=== PATIENT | male | born 1945 | race Caucasian/White ===

== ENCOUNTER → 2017-03-04 | Outpatient (CLI) | payer MEDICARE, OTHER ==
--- NOTE | 2017-03-04 14:56 | CT ---
EXAMINATION TYPE: CT chest wo con DATE OF EXAM: 03/04/2017 12:58 PM COMPARISON: 12/20/2014 HISTORY: 71-year-old male poor historian. Follow up for pulmonary nodule. TECHNIQUE: Contiguous axial scanning of the chest without IV contrast. Coronal and sagittal reconstru ctions performed. CT DLP: 229.3 mGycm Automated exposure control for dose reduction was used. FINDINGS: The heart is normal size without pericardial effusion. Coronary vessel calcifications are present and are a marker for coronary artery disease. Aorta is normal caliber with conventional arch vessel branching anatomy and mild atherosclerotic arch calcifications. No thoracic lymphadenopathy by CT size criteria. Incidental mild bilateral gynecomastia. Evaluation of the lungs shows mild diffuse bronchial wall thickening similar to prior exam. There is very mild scattered emphysematous cysts demonstrated strandy atelectasis in the inferior lingula and add both lower lobes. Small to moderate-sized hiatal hernia. Visualized upper abdomen shows no gross abnormality. Bones: Bridging anterior endplate spondylosis throughout the thoracic spine suggestive of DISH. No os seous destructive process. IMPRESSION: 1. COPD WITH VERY MILD SCATTERED EMPHYSEMA. 2. NO SUSPICIOUS PULMONARY NODULE IDENTIFIED. IF THERE IS AN OUTSIDE EXAM IN WHICH A PULMONARY NODULE WAS VISUALIZED, CORRELATION CAN BE MADE AND THIS EXAM CAN BE REVIEWED. 3. SMALL TO MODERATE-SIZED HIATAL HERNIA.
== END | disposition home or self-care (01) ==
LOC: RADCTMAIN 12:24
PROVIDERS: ATTEND Internal Medicine Sleep Medicine
DX: J43.9 Emphysema, unspecified (principal)
CPT/HCPCS: 71250

== ENCOUNTER → 2017-08-18 | Outpatient (CLI) | payer MEDICARE, OTHER ==
--- NOTE | 2017-08-18 11:32 | MR ---
EXAMINATION TYPE: MR brain wo con DATE OF EXAM: 08/18/2017 COMPARISON: 01/25/2015 CT brain HISTORY: Stroke, seizures T1-weighted sagittal, T2, FLAIR, and diffusion axial, and T2 coronal coronal views of the brain are s ubmitted. There is no evidence of acute ischemia. There is no mass effect. Craniocervical junction maintained. Sella turcica has a normal appearance. No cerebellopontine angle mass. There is mild to moderate generalized degenerative change. There are scattered areas of abnormal sign al the white matter which are nonspecific but most typical remote microvascular ischemia. Changes of chronic sinusitis noted. Craniocervical junction maintained. IMPRESSION: 1. No acute intracranial process 2. Degenerative and nonspecific white matter changes most typical of remote microvascular ischemia.
== END | disposition home or self-care (01) ==
LOC: RADMRIMAIN 09:26
PROVIDERS: ATTEND Nurse Practitioner Acute Care
DX: R90.82 White matter disease, unspecified (principal); G40.909 Epilepsy, unspecified, not intractable, without status epilepticus
CPT/HCPCS: 70551

== ENCOUNTER 2017-10-20 11:31 | Emergency (ER) | payer MEDICARE, OTHER ==
[2017-10-20] MEDS ORDERED: SODIUM CHLORIDE 0.9% 500 ML IV STA (12:41)
[2017-10-20] MEDS ORDERED: KETOROLAC 30 MG/ML 1 ML VIAL IVP STA (12:42)
--- NOTE | 2017-10-20 12:57 | ED ---
General Adult HPI - General Chief complaint: Back Pain/Injury Stated complaint: SIDE PAIN, DIFFICULTY URINIATING Time Seen by Provider: 10/20/17 12:20 Source: patient, RN notes reviewed Mode of arrival: ambulatory Limitations: no limitations - History of Present Illness Initial comments: This a 72-year-old male presents emergency Department with chief complaint of back pain and difficulty urinating. Patient states his chronic back issues in which he sees Dr. Jeong for. Patient states that he receives Elberon along with some injections at times. Patient states that pain, which worsened usual today states that he felt that he was not under control slightly came in. Patient also states that over days ago he had to push to urinate and felt like something was stuck states that he said no, urinating at this time. Denies nausea, vomiting diarrhea constipation. Denies any dysuria or hematuria. Patient had no prostate issues denies any other complaints. - Related Data Home Medications Medication Instructions Recorded Confirmed HYDROcodone/APAP 5-325MG [[place] 5] 1 tab PO BID 01/25/15 10/20/17 Omeprazole [PriLOSEC] 20 mg PO AC-BRKFST 01/25/15 10/20/17 levETIRAcetam [Keppra] 1,000 mg PO Q12HR 01/25/15 10/20/17 Carbidopa/Levodopa 1 tab PO BID 10/20/17 10/20/17 [Carbidopa-Levodopa 10-100 Tab] Memantine HCl/Donepezil HCl 1 cap PO DAILY 10/20/17 10/20/17 [Namzaric 28 mg-10 mg Capsule] Naproxen 500 mg PO BID 10/20/17 10/20/17 QUEtiapine [SEROquel] 100 mg PO HS 10/20/17 10/20/17 Previous Rx's Medication Instructions Recorded methylPREDNISolone [Medrol Dose 4 mg PO DIRECTED #1 pack 10/20/17 Pack] Allergies Allergy/AdvReac Type Severity Reaction Status Date / Time No Known Allergies Allergy Verified 10/20/17 11:57 Review of Systems ROS Statement: Those systems with pertinent positive or pertinent negative responses have been documented in the HPI. ROS Other: All systems not noted in ROS Statement are negative. Past Medical History Past Medical History: COPD, Dementia, Eye Disorder, GERD/Reflux, Memory Impairment, Neurologic Disorder, Pulmonary Embolus (PE), Seizure Disorder Additional Past Medical History / Comment(s): parkinsons, dysphagia, hiatel hernia History of Any Multi-Drug Resistant Organisms: MRSA Date of last positivie culture/infection: 2014 MDRO Source:: lungs/pneumonia. Additional Past Surgical History / Comment(s): LT CATARACT, COLONOSCOPY;EGD Past Anesthesia/Blood Transfusion Reactions: No Reported Reaction Past Psychological History: Anxiety Smoking Status: Former smoker Past Alcohol Use History: None Reported Past Drug Use History: None Reported - Past Family History Father Family Medical History: CVA/TIA, Myocardial Infarction ([place]), Seizure Disorder Mother Family Medical History: CVA/TIA General Exam Limitations: no limitations General appearance: alert, in no apparent distress Head exam: Present: atraumatic, normocephalic, normal inspection Respiratory exam: Present: normal lung sounds bilaterally. Absent: respiratory distress, wheezes, rales, rhonchi, stridor Cardiovascular Exam: Present: regular rate, normal rhythm, normal heart sounds. Absent: systolic murmur, diastolic murmur, rubs, gallop, clicks GI/Abdominal exam: Present: soft, normal bowel sounds. Absent: distended, tenderness, guarding, rebound, rigid Extremities exam: Present: normal inspection, full ROM, normal capillary refill. Absent: tenderness, pedal edema, joint swelling, calf tenderness Back exam: Present: full ROM, tenderness, paraspinal tenderness. Absent: CVA tenderness (R), CVA tenderness (L), vertebral tenderness Neurological exam: Present: alert, oriented X3, CN II-XII intact, reflexes normal. Absent: motor sensory deficit Skin exam: Present: warm, dry, intact, normal color. Absent: rash Course Vital Signs 10/20/17 10/20/17 10/20/17 11:38 11:43 14:47 Temperature 99 F Pulse Rate 77 84 Respiratory 16 18 Rate Blood Pressure 152/68 163/78 O2 Sat by Pulse 97 94 L Oximetry Medical Decision Making - Medical Decision Making 72-year-old male present emergency Department chief complaint of chronic back pain. Patient's lab work and imaging is unremarkable. Patient states he didn' t episode where he cannot urinate. Patient has no evidence of infection. Patient will be discharged. Advised follow-up with pain management in his neurologist. - Lab Data Result diagrams: 10/20/17 13:00 10/20/17 13:00 Lab Results 10/20/17 10/20/17 10/20/17 Range/Units 13:00 13:00 13:10 WBC 6.5 (3.8-10.6) k/uL RBC 5.09 (4.30-5.90) m/uL Hgb 15.7 (13.0-17.5) gm/dL Hct 48.6 (39.0-53.0) % MCV 95.5 (80.0-100.0) fL MCH 30.9 (25.0-35.0) pg MCHC 32.3 (31.0-37.0) g/dL RDW 14.4 (11.5-15.5) % Plt Count 184 (150-450) k/uL Neutrophils % 81 % Lymphocytes % 9 % Monocytes % 6 % Eosinophils % 2 % Basophils % 1 % Neutrophils # 5.3 (1.3-7.7) k/uL Lymphocytes # 0.6 L (1.0-4.8) k/uL Monocytes # 0.4 (0-1.0) k/uL Eosinophils # 0.2 (0-0.7) k/uL Basophils # 0.0 (0-0.2) k/uL Sodium 145 (137-145) mmol/L Potassium 4.5 (3.5-5.1) mmol/L Chloride 103 (98-107) mmol/L Carbon Dioxide 29 (22-30) mmol/L Anion Gap 13 mmol/L BUN 14 (9-20) mg/dL Creatinine 0.90 (0.66-1.25) mg/dL Est GFR (MDRD) Af Amer >60 (>60 ml/min/1.73 sqM) Est GFR (MDRD) Non-Af >60 (>60 ml/min/1.73 sqM) Glucose 92 (74-99) mg/dL Calcium 9.8 (8.4-10.2) mg/dL Total Bilirubin 1.1 (0.2-1.3) mg/dL AST 21 (17-59) U/L ALT 26 (21-72) U/L Alkaline Phosphatase 101 (38-126) U/L Total Protein 7.2 (6.3-8.2) g/dL Albumin 4.5 (3.5-5.0) g/dL Amylase 51 (30-110) U/L Lipase 38 (23-300) U/L Urine Color Yellow Urine Appearance Clear (Clear) Urine pH 6.0 (5.0-8.0) Ur Specific [place] 1.015 (1.001-1.035) Urine Protein 1+ H (Negative) Urine Glucose (UA) Negative (Negative) Urine Ketones Negative (Negative) Urine Blood Negative (Negative) Urine Nitrite Negative (Negative) Urine Bilirubin Negative (Negative) Urine Urobilinogen <2.0 (<2.0) mg/dL Ur Leukocyte Esterase Negative (Negative) Urine RBC 1 (0-5) /hpf Urine WBC <1 (0-5) /hpf Urine Bacteria Rare H (None) /hpf Urine Mucus Rare H (None) /hpf Disposition Clinical Impression: Back pain Disposition: HOME SELF-CARE Condition: Stable Instructions: Chronic Back Pain (ED) Additional Instructions: Please return to the Emergency Department if symptoms worsen or any other concerns. Prescriptions: methylPREDNISolone [Medrol Dose Pack] 4 mg PO DIRECTED #1 pack Referrals: Jan Chand MD [Primary Care Provider] - 1-2 days Time of Disposition: 14:56
[2017-10-20 13:17] LABS: Basophils % (A) 1 %; CH 31.1; CHCM 32.7; Eosinophils # (A) 0.2 k/uL (0-0.7); Eosinophils % (A) 2 %; HCT 48.6 % (39.0-53.0); HDW 2.48; HGB 15.7 gm/dL (13.0-17.5); Luc # (Auto) 0.04; Luc % (Auto) 1; Lymphocytes # (A) 0.6 k/uL (1.0-4.8); Lymphocytes % (A) 9 %; MCH 30.9 pg (25.0-35.0); MCHC 32.3 g/dL (31.0-37.0); MCV 95.5 fL (80.0-100.0); Mean Platelet Volume 7.2; Monocytes # (A) 0.4 k/uL (0-1.0); Monocytes % (A) 6 %; Neutrophils # (A) 5.3 k/uL (1.3-7.7); Neutrophils % (A) 81 %; RBC 5.09 m/uL (4.30-5.90); RDW 14.4 % (11.5-15.5); WBC 6.5 k/uL (3.8-10.6); WBC (Perox) 6.42
--- NOTE | 2017-10-20 13:26 | XR ---
EXAMINATION TYPE: XR KUB DATE OF EXAM: 10/20/2017 1:17 PM CLINICAL HISTORY: Flank pain and difficulty urinating. TECHNIQUE: Two Upright KUB images of the abdomen are obtained. COMPARISON: CT abdomen and pelvis July 16, 2013 FINDINGS: Scattered gas is seen in non-distended stomach and small bowel loops. Gas and fecal materia l is seen in non-distended colon. There is no visceromegaly, pneumoperitoneum, or abnormal calcificat ion appreciated. The lung bases are clear. Multilevel spurring and spine is redemonstrated. IMPRESSION: Overall nonobstructive bowel gas pattern. No definite nephrolithiasis.
[2017-10-20 13:29] LABS: Appearance,Urine Clear (Clear); Bacteria,Urine Rare /hpf; Bilirubin,Urine Negative (Negative); Glucose,Urine (UA) Negative (Negative); Ketones,Urine Negative (Negative); Leukocyte Esterase,Urine Negative (Negative); Mucus,Urine Rare /hpf; Nitrite,Urine Negative (Negative); Particle Count 1388; Protein,Urine 1+ (Negative); RBC,Urine 1 /hpf (0-5); Specific Gravity,Urine 1.015 (1.001-1.035); UA Billing (MACRO vs. MICRO) MICRO; Urobilinogen,Urine <2.0 mg/dL (<2.0); WBC,Urine <1 /hpf (0-5)
[2017-10-20 13:30] LABS: ALT 26 U/L (21-72); AST 21 U/L (17-59); Alkaline Phosphatase 101 U/L (38-126); Amylase 51 U/L (30-110); Anion Gap 13 mmol/L; Blood Urea Nitrogen 14 mg/dL (9-20); Calcium 9.8 mg/dL (8.4-10.2); Carbon Dioxide 29 mmol/L (22-30); Chloride 103 mmol/L (98-107); Glucose 92 mg/dL (74-99); Non-African American GFR(MDRD) >60 (>60 ml/min/1.73 sqM); Potassium 4.5 mmol/L (3.5-5.1); Sodium 145 mmol/L (137-145); Total Bilirubin 1.1 mg/dL (0.2-1.3); Total Protein 7.2 g/dL (6.3-8.2)
[2017-10-20] MEDS ORDERED: ORPHENADRINE 30 MG/ML 2 ML VIAL IVP STA (13:58)
[2017-10-20] MEDS ORDERED: HYDROcodone/APAP 7.5-325MG 1 EACH TAB PO ONE (13:58)
--- NOTE | 2017-10-20 14:44 | CT ---
EXAMINATION TYPE: CT brain cspine wo con DATE OF EXAM: 10/20/2017 COMPARISON: CT brain January 25, 2015. MRI brain August 18, 2017 HISTORY: Headache with neck pain CT DLP: 1359.1 mGycm. Automated Exposure Control for Dose Reduction was Utilized. TECHNIQUE: CT scan of the head and cervical spine are performed without contrast. FINDINGS: There is no acute intracranial hemorrhage hemorrhage or midline shift identified. There i s ventricular and sulcal prominence consistent with age-related cerebral atrophy. There is low-attenu ation in the periventricular white matter consistent with product of chronic small vessel ischemic ch ac. High dense material right parietal subcutaneous tissue near axial image 30 is some uncertain et iology unchanged from prior CT suggested is almost certainly benign. Would consider small scalp hemat lashay in appropriate clinical setting though this is less likely given prior comparison with same findi ng. There is old fracture deformity medial wall left orbit redemonstrated. Visualized paranasal sinus es are clear. Cervical spine is visualized in its entirety from C1 through upper thoracic levels and demonstrates s atisfactory alignment without evidence of acute fracture or dislocation. Prevertebral soft tissue ap pears within normal limits. The C1-C2 articulation is within normal limits on the coronal images. Th ere is narrowing of the atlantodental interval with sclerosis. Vertebral body heights and disc space heights are fairly well-maintained. There is large anterior spu rring with some bridging osteophytes anteriorly C4-C6 vertebra. No large posterior disc herniations a re seen on sagittal images. Review of axial images show the neural foramina appear grossly patent at all cervical levels. Spinal canal is grossly preserved. Thyroid gland is within normal limits. Visualized lung apices are grossly clear IMPRESSION: 1. There is no acute fracture or dislocation evident in the cervical spine. 2. No acute intracranial hemorrhage or midline shift is seen. Mild to moderate diffuse cerebral atrop hy and chronic small vessel ischemic change is redemonstrated.
[2017-10-20 15:02] VITALS: BP 161/69; PULSE 59; RESP 17; TEMP 97
== END 2017-10-20 15:27 | disposition home or self-care (01) ==
LOC: EC 11:31
DX: M54.9 Dorsalgia, unspecified (principal); F03.90 Unspecified dementia, unspecified severity, without behavioral disturbance, psychotic disturbance, mood disturbance, and anxiety; K21.9 Gastro-esophageal reflux disease without esophagitis; G40.909 Epilepsy, unspecified, not intractable, without status epilepticus; F41.9 Anxiety disorder, unspecified; G20 Parkinson's disease; Z86.711 Personal history of pulmonary embolism; Z87.891 Personal history of nicotine dependence; Z79.1 Long term (current) use of non-steroidal anti-inflammatories (NSAID); Z79.899 Other long term (current) drug therapy
CPT/HCPCS: 36415; 80053; 82150; 83690; 85025; 81001; 87086; 74000; 72125; 70450; 99284; 96374; 96375; 96361; J2360; J1885

== ENCOUNTER 2018-01-28 11:17 | Inpatient (IN) | payer MEDICARE, MEDICAID ==
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
[2018-01-28 13:40] LABS: Basophils % (A) 0 %; Eosinophils # (A) 0.2 k/uL (0-0.7); Eosinophils % (A) 2 %; HCT 45.5 % (39.0-53.0); Lymphocytes # (A) 0.9 k/uL (1.0-4.8); Lymphocytes % (A) 13 %; MCH 31.3 pg (25.0-35.0); MCHC 35.1 g/dL (31.0-37.0); MCV 89.4 fL (80.0-100.0); Mean Platelet Volume 6.7; Monocytes # (A) 0.4 k/uL (0-1.0); Monocytes % (A) 6 %; Neutrophils # (A) 5.1 k/uL (1.3-7.7); Neutrophils % (A) 77 %; Platelet Count 198 k/uL (150-450); RBC 5.09 m/uL (4.30-5.90); RDW 12.7 % (11.5-15.5); WBC 6.6 k/uL (3.8-10.6)
[2018-01-28 13:51] LABS: ALT 31 U/L (21-72); AST 21 U/L (17-59); Albumin 4.7 g/dL (3.5-5.0); Alkaline Phosphatase 118 U/L (38-126); Anion Gap 14 mmol/L; Blood Urea Nitrogen 15 mg/dL (9-20); Calcium 9.6 mg/dL (8.4-10.2); Carbon Dioxide 26 mmol/L (22-30); Chloride 105 mmol/L (98-107); Glucose 95 mg/dL (74-99); Sodium 145 mmol/L (137-145); Total Bilirubin 1.4 mg/dL (0.2-1.3); Total Protein 7.5 g/dL (6.3-8.2)
[2018-01-28 14:10] LABS: Amphetamine Screen,Urine Not Detected (NotDetected); Barbiturate Screen,Urine Not Detected (NotDetected); Benzodiazepines Screen,Urine Not Detected (NotDetected); Cocaine Screen,Urine Not Detected (NotDetected); Methadone Screen, Urine Not Detected (NotDetected); Opiate Screen,Urine Not Detected (NotDetected); Oxycodone Screen, Urine Not Detected (NotDetected); Phencyclidine Screen,Urine Not Detected (NotDetected); Tricyclic Antidepressant,Urine Detected (NotDetected); Urn Cannabinoid Scrn Not Detected (NotDetected)
[2018-01-28] MEDS ORDERED: MAG HYDROX/AL HYDROX/SIMETH 30 ML CUP PO PRN (16:39)
[2018-01-28] MEDS ORDERED: MAGNESIUM HYDROXIDE 2,400 MG/10 ML CUP PO PRN (16:39)
[2018-01-28 17:09] LABS: Appearance,Urine Clear (Clear); Bilirubin,Urine Negative (Negative); Blood,Urine Negative (Negative); Color,Urine Yellow; Glucose,Urine (UA) 1+ (Negative); Ketones,Urine 1+ (Negative); Leukocyte Esterase,Urine Negative (Negative); Mucus,Urine Moderate /hpf; Nitrite,Urine Negative (Negative); PH, Urine 6.5 (5.0-8.0); Protein,Urine 1+ (Negative); RBC,Urine 14 /hpf (0-5); Specific Gravity,Urine 1.025 (1.001-1.035); Sperm,Urine Many /hpf; Squamous Epithelial Cell,Urine <1 /hpf (0-4); WBC,Urine 3 /hpf (0-5)
[2018-01-28] MEDS ORDERED: NAPROXEN 250 MG TAB PO PRN (20:32)
[2018-01-28] MEDS ORDERED: QUEtiapine 200 MG TAB PO SCH (21:00)
[2018-01-28] MEDS: CARBIDOPA-LEVODOPA 10-100 MG 1 EACH TAB PO SCH (21:28)
[2018-01-28] MEDS: LATANOPROST 0.005% OPHTH DROPS 2.5 ML BTL BOTH EYES SCH (21:28)
[2018-01-28] MEDS: levETIRAcetam 500 MG TAB PO SCH (21:28)
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
[2018-01-29] MEDS: CARBIDOPA-LEVODOPA 10-100 MG 1 EACH TAB PO SCH ×2 (09:59→22:18)
[2018-01-29] MEDS: PANTOPRAZOLE 40 MG TABLET PO SCH (09:59)
[2018-01-29] MEDS: levETIRAcetam 500 MG TAB PO SCH ×2 (10:00→22:18)
[2018-01-29] MEDS: Memantine Hcl/Donepezil Hcl [Namzaric 28 Mg-10 Mg Capsule] PO SCH (10:01)
--- NOTE | 2018-01-29 11:09 | P.HP ---
Psychiatric H&P - . History & Physical: Allergies Allergy/AdvReac Type Severity Reaction Status Date / Time No Known Allergies Allergy Verified 01/28/18 11:53 Vital Signs Temp 97.9 F 01/29/18 06:23 Pulse 77 01/29/18 06:23 Resp 16 01/29/18 06:23 BP 110/58 01/29/18 06:23 Pulse Ox 97 01/28/18 18:15 Intake & Output 01/28/18 01/29/18 01/29/18 18:59 06:59 18:59 Weight 79.379 kg Laboratory Last Values WBC 6.6 k/uL (3.8-10.6) 01/28/18 13:20 RBC 5.09 m/uL (4.30-5.90) 01/28/18 13:20 Hgb 16.0 gm/dL (13.0-17.5) 01/28/18 13:20 Hct 45.5 % (39.0-53.0) 01/28/18 13:20 MCV 89.4 fL (80.0-100.0) 01/28/18 13:20 MCH 31.3 pg (25.0-35.0) 01/28/18 13:20 MCHC 35.1 g/dL (31.0-37.0) 01/28/18 13:20 RDW 12.7 % (11.5-15.5) 01/28/18 13:20 Plt Count 198 k/uL (150-450) 01/28/18 13:20 Neutrophils % 77 % 01/28/18 13:20 Lymphocytes % 13 % 01/28/18 13:20 Monocytes % 6 % 01/28/18 13:20 Eosinophils % 2 % 01/28/18 13:20 Basophils % 0 % 01/28/18 13:20 Neutrophils # 5.1 k/uL (1.3-7.7) 01/28/18 13:20 Lymphocytes # 0.9 k/uL (1.0-4.8) L 01/28/18 13:20 Monocytes # 0.4 k/uL (0-1.0) 01/28/18 13:20 Eosinophils # 0.2 k/uL (0-0.7) 01/28/18 13:20 Basophils # 0.0 k/uL (0-0.2) 01/28/18 13:20 Sodium 145 mmol/L (137-145) 01/28/18 13:20 Potassium 4.0 mmol/L (3.5-5.1) 01/28/18 13:20 Chloride 105 mmol/L (98-107) 01/28/18 13:20 Carbon Dioxide 26 mmol/L (22-30) 01/28/18 13:20 Anion Gap 14 mmol/L 01/28/18 13:20 BUN 15 mg/dL (9-20) 01/28/18 13:20 Creatinine 0.89 mg/dL (0.66-1.25) 01/28/18 13:20 Est GFR (CKD-EPI)AfAm >90 (>60 ml/min/1.73 sqM) 01/28/18 13:20 Est GFR (CKD-EPI)NonAf 87 (>60 ml/min/1.73 sqM) 01/28/18 13:20 Glucose 95 mg/dL (74-99) 01/28/18 13:20 Calcium 9.6 mg/dL (8.4-10.2) 01/28/18 13:20 Total Bilirubin 1.4 mg/dL (0.2-1.3) H 01/28/18 13:20 AST 21 U/L (17-59) 01/28/18 13:20 ALT 31 U/L (21-72) 01/28/18 13:20 Alkaline Phosphatase 118 U/L (38-126) 01/28/18 13:20 Total Protein 7.5 g/dL (6.3-8.2) 01/28/18 13:20 Albumin 4.7 g/dL (3.5-5.0) 01/28/18 13:20 Urine Color Yellow 01/28/18 13:35 Urine Appearance Clear (Clear) 01/28/18 13:35 Urine pH 6.5 (5.0-8.0) 01/28/18 13:35 Ur Specific [place] 1.025 (1.001-1.035) 01/28/18 13:35 Urine Protein 1+ (Negative) H 01/28/18 13:35 Urine Glucose (UA) 1+ (Negative) H 01/28/18 13:35 Urine Ketones 1+ (Negative) H 01/28/18 13:35 Urine Blood Negative (Negative) 01/28/18 13:35 Urine Nitrite Negative (Negative) 01/28/18 13:35 Urine Bilirubin Negative (Negative) 01/28/18 13:35 Urine Urobilinogen 2.0 mg/dL (<2.0) 01/28/18 13:35 Ur Leukocyte Esterase Negative (Negative) 01/28/18 13:35 Urine RBC 14 /hpf (0-5) H 01/28/18 13:35 Urine WBC 3 /hpf (0-5) 01/28/18 13:35 Ur Squamous Epith Cells <1 /hpf (0-4) 01/28/18 13:35 Urine Mucus Moderate /hpf (None) H 01/28/18 13:35 Urine Sperm Many /hpf (None) H 01/28/18 13:35 Urine Opiates Screen Not Detected (NotDetected) 01/28/18 13:35 Ur Oxycodone Screen Not Detected (NotDetected) 01/28/18 13:35 Urine Methadone Screen Not Detected (NotDetected) 01/28/18 13:35 Ur Propoxyphene Screen Not Detected (NotDetected) 01/28/18 13:35 Ur Barbiturates Screen Not Detected (NotDetected) 01/28/18 13:35 U Tricyclic Antidepress Detected (NotDetected) H 01/28/18 13:35 Ur Phencyclidine Scrn Not Detected (NotDetected) 01/28/18 13:35 Ur Amphetamines Screen Not Detected (NotDetected) 01/28/18 13:35 U Methamphetamines Scrn Not Detected (NotDetected) 01/28/18 13:35 U Benzodiazepines Scrn Not Detected (NotDetected) 01/28/18 13:35 Urine Cocaine Screen Not Detected (NotDetected) 01/28/18 13:35 U Marijuana (THC) Screen Not Detected (NotDetected) 01/28/18 13:35 01/29/18 10:56 IDENTIFYING DATA: This patient is a 72-year-old male who was admitted to the mental health unit through the emergency room due to acute agitated behavior with psychosis. HPI: The patient presents with a petition completed by his daughter stating "throwing things out saying he doesn't need them anymore throwing things breaking things at others. Making threats of harm or kill others in their presence. Planning on hurting family in animals in home. Random throwing things. Keeps saying someone is stealing. Angry combative. Refuses meds. Threatened to hurt kill family members in animals. Always thinks possessions are being stolen. Very aggressive angry all the time." The patient is known to my outpatient practice he is treated for symptoms of psychosis in the context of Parkinson's disease with neurocognitive symptoms. We had been managing his symptoms with Seroquel since 2016 lately we have had to increase the dose of Seroquel but this is provided no further benefit. The patient has poor insight into his symptoms. Although he admits he was aggressive at home he states they are stealing from him. He feels his food is being stolen his money is being stolen although he has a public guardian. He chronically struggles with short-term memory and concentration. He often spontaneously speaks about several remote past events. PAST PSYCHIATRIC HISTORY: This is the patient's first inpatient psychiatric hospitalization, no history of suicide attempts, he has been maintained with Seroquel 200 mg at bedtime and we're using a 25 mg when necessary dose. Titrating the Seroquel has provided no further benefit over the last few months in the outpatient setting. Prior to seeing me in 2015 he was on Risperdal 2 mg twice daily. He was not on Sinemet for his Parkinson's at the time and the concern was the Risperdal was causing extrapyramidal symptoms. The medicine did calm his behavior per family report at that time. He is treated with the [facility]. PMH: History of glaucoma he is blind in his right eye, history of seizures reflux and previously was noted he may have had a history of Ly's esophagus. He is known to have osteoarthritis, history of pulmonary embolism and cataracts. ALLERGIES: NO KNOWN DRUG ALLERGIES MEDICATIONS: Refer to [facility] CHEMICAL DEPENDENCY HISTORY: No reported use of alcohol or illicit drugs there may be a remote history of him overusing alcohol, no history of inpatient chemical dependency treatment. FAMILY PSYCHIATRIC HISTORY: None FAMILY CHEMICAL DEPENDENCY HISTORY: Unknown SOCIAL HISTORY: The patient is 72 years old he is a , he resides with his daughter Elicia. He has 3 daughters total. He has been on disability since 1972 due to his visual impairment. He is retired from working sporadically across a number of different jobs. He has an eighth grade education. Previously has daughter had believed he was illiterate. He has 1 sister and 3 brothers. No history of experience. Legal and abuse history unclear at this time. MENTAL STATUS EXAM: The patient is a shorter statured male. He is balding on top he wears a bah and wears eyeglasses. He is dressed in hospital attire and ambulates with a walker. He has a disheveled appearance. Eye contact is appropriate speech is fluent and spontaneous, he is overly verbose. I often need to redirect him verbally. He tends to focus on events from the remote past such as when he was in middle school. He endorses a frustrated and angry mood because he feels his family is stealing from him. He endorses other paranoid and persecutory thoughts. He admits to having feelings of aggressiveness he states he has thrown objects and has been physically aggressive with family. He endorses no thoughts of harming anyone here in the hospital or harming himself at this time. Insight and judgment are impaired. He demonstrates no abnormal involuntary movements at this time he demonstrates no aggressiveness during our session. He is not oriented to the day month or year. He identifies her location as [facility]. He does recall me by name. He is not able to spell world backwards. He is not able to successfully name the days of the week backwards. STRENGTHS/WEAKNESSES: Strengths: Guardianship, housing, income, support from family weaknesses: Exacerbation of symptoms causing dysfunction INTELLECTUAL FUNCTIONING: Likely below average IMPRESSIONS: [] 1. Psychosis unspecified, major neurocognitive disorder 2. Parkinson's, other medical comorbidities include glaucoma, visual impairment , history of seizures, reflux, osteoarthritis, history of pulmonary embolism 3. Psychosocial dysfunction due to exacerbation of psychosis PLAN: The patient has been admitted to the mental health unit. He is here in voluntarily. I completed a second clinical certificate. Although he would prefer to avoid use of an antipsychotic in a patient with suspected Parkinson's and neurocognitive symptoms, his symptoms of psychosis have become severe enough causing severe dysfunction at his place of residence. We will discontinue the Seroquel. It appears he has been noncompliant with that prior to this admission. We will initiate invega 3 mg at bedtime. We will monitor for any exacerbation of Parkinson's symptoms. He is on Sinemet and of course this can provoke symptoms of psychosis but it has made a tremendous improvement in his mobility and ability to express himself. He will be seen by internal medicine for routine history and physical exam. Social work is met with the patient to complete a psychosocial assessment. As he will allow family will be involved in treatment and discharge planning. We will monitor him for safety. He is encouraged to appropriately participate
[2018-01-29 19:19] LABS: Hemoglobin A1C 5.4 % (4.0-6.0)
[2018-01-29 20:04] LABS: Appearance,Urine Clear (Clear); Bilirubin,Urine Negative (Negative); Blood,Urine Negative (Negative); Color,Urine Yellow; Glucose,Urine (UA) Trace (Negative); Ketones,Urine Negative (Negative); Leukocyte Esterase,Urine Negative (Negative); Nitrite,Urine Negative (Negative); PH, Urine 5.5 (5.0-8.0); Protein,Urine Trace (Negative); Specific Gravity,Urine 1.021 (1.001-1.035); Urobilinogen,Urine <2.0 mg/dL (<2.0)
[2018-01-29] MEDS: PALIPERIDONE 3 MG TAB.ER.24 PO SCH (22:18)
[2018-01-29] MEDS: LATANOPROST 0.005% OPHTH DROPS 2.5 ML BTL BOTH EYES SCH (22:19)
[2018-01-29] MEDS: ACETAMINOPHEN TAB 325 MG TAB PO PRN (22:36)
[2018-01-30] MEDS: PANTOPRAZOLE 40 MG TABLET PO SCH (09:23)
[2018-01-30] MEDS: levETIRAcetam 500 MG TAB PO SCH ×2 (09:23→21:52)
[2018-01-30] MEDS: CARBIDOPA-LEVODOPA 10-100 MG 1 EACH TAB PO SCH ×2 (09:23→21:51)
[2018-01-30] MEDS: Memantine Hcl/Donepezil Hcl [Namzaric 28 Mg-10 Mg Capsule] PO SCH (09:24)
[2018-01-30] MEDS: NAMZARIC PO SCH (11:06)
--- NOTE | 2018-01-30 11:42 | P.PN ---
Progress Note - Text Progress Note Date: 01/30/18 Interval History: Patient is a 72-year-old male who is being seen in coverage for Dr. Cordero. Patient was seen in his room where he was lying in bed stating that he had slept fairly well last evening and states that he is eating well. Patient states that he is not having any visual hallucinations and states that he is not paranoid. He reports no side effects from the medication last evening. Patient states that he uses his walker and got up to use the bathroom without difficulty. Patient reported no side effects from the new medication last evening. Patient had no other concerns at this time. Mental Status: Appearance/Attitude: Patient is lying in bed in no acute distress , made good eye contact and was cooperative. Behavior: Patient did not exhibit any psychomotor agitation or retardation. Speech/Language: Patient's speech is spontaneous, his speech is of normal volume and rhythm and he is coherent Thought Process: Patient responded in brief sentences, he was not circumstantial or tangential Thought Content: Patient denied auditory or visual hallucinations and no delusions or paranoid ideation were elicited. Patient states that he slept fairly well and states that he is eating well. Patient stated that he was able to get up and go to the bathroom without assistance using a walker. Suicidal/Homicidal Ideation: Patient denied any current suicidal or homicidal ideation. Sensorium/Cognition: Patient is alert and oriented to person, location his recent and remote memory were not formally tested Mood/Affect: Patient's mood is pleasant and his affect is slightly blunted Insight/Judgment: Patient's insight and judgment are fair Assessment: Patient was placed on Invega 3 mg at bedtime yesterday switched from Seroquel. Patient slept 6 hours last night and is eating fairly well. Patient states that he is able to get up with the use of a walker and uses the bathroom without difficulty. Patient states at home is difficult to bathe as he needs to step in and out of the bathtub. Patient has not exhibited any aggressive behavior here while on the unit. He is not reporting any visual hallucinations, and no delusional ideation was elicited. Patient reported no side effects from the medication. Social work reported that they have sent packets to several nursing homes for evaluation. Plan: Patient will continue on Invega 3 mg at bedtime to target his psychotic symptoms, his other medications remain unchanged for his medical problems. Regarding discharge plans should patient not qualify for a fpc and need to return to live with his daughter and son-in-law home health will be ordered.
[2018-01-30] MEDS: LATANOPROST 0.005% OPHTH DROPS 2.5 ML BTL BOTH EYES SCH (21:52)
[2018-01-30] MEDS: PALIPERIDONE 3 MG TAB.ER.24 PO SCH (21:52)
[2018-01-31] MEDS: CARBIDOPA-LEVODOPA 10-100 MG 1 EACH TAB PO SCH ×2 (08:41→21:50)
[2018-01-31] MEDS: PANTOPRAZOLE 40 MG TABLET PO SCH (08:41)
[2018-01-31] MEDS: levETIRAcetam 500 MG TAB PO SCH ×2 (08:42→21:50)
[2018-01-31] MEDS: NAMZARIC PO SCH (08:43)
[2018-01-31] MEDS: PALIPERIDONE 3 MG TAB.ER.24 PO SCH (21:50)
[2018-01-31] MEDS: LATANOPROST 0.005% OPHTH DROPS 2.5 ML BTL BOTH EYES SCH (21:50)
--- NOTE | 2018-01-31 23:29 | P.PN ---
Progress Note - Text Progress Note Date: 01/31/18 Patient was seen today. He states his pain on the left side of the body is getting better. He reports seeing flashes from time to time. He denies auditory halluciantions. He denies symptoms of depression or eladia. He reports good sleep and reports good appetite. He reports going to all his groups. Mental status exam He is 72 year old male. He ambulates with a walker and stated his balance is not good. He reports have sequele of the stroke on the left side of his body. He is dressed in hospital attire appears in fair grooming and hygine. He maintains good eye contact. He denies auditory or visual halluciantions. He denies paranoia and did not appear delusional. He is alert and oriented to time place and person. He denies suicidal or homicidal ideations. Has fair insight and judgement. Assessment: Responded well to medications. No side effects reported. Waiting to be placed. Plan: continue on Invega 3 mg at bedtime Monitor for symptoms
[2018-02-01] MEDS: CARBIDOPA-LEVODOPA 10-100 MG 1 EACH TAB PO SCH ×2 (08:51→20:49)
[2018-02-01] MEDS: PANTOPRAZOLE 40 MG TABLET PO SCH (08:51)
[2018-02-01] MEDS: levETIRAcetam 500 MG TAB PO SCH ×2 (08:51→20:50)
[2018-02-01] MEDS: NAMZARIC PO SCH (08:54)
--- NOTE | 2018-02-01 20:49 | P.PN ---
Progress Note - Text Progress Note Date: 02/01/18 Patient was seen today. He reports being complaint with his medications. He denies symptoms of psychosis, eladia and depression. No behavioral problems reported. He reports [id number] with his group therapies. Mental status exam He is 72 year old male. He ambulates with a walker due to gait problems He suffered stroke. with sequele of it on the left side of his body. He is dressed in hospital attire appears in fair grooming and hygine. He maintains good eye contact. He denies auditory or visual halluciantions. He denies paranoia and did not appear delusional. He is alert and oriented to time place and person. He denies suicidal or homicidal ideations. Has fair insight and judgement. Assessment: Responded well to medications. No side effects reported. Waiting to be placed. Plan: continue on Invega 3 mg at bedtime Monitor for symptoms
[2018-02-01] MEDS: LATANOPROST 0.005% OPHTH DROPS 2.5 ML BTL BOTH EYES SCH (20:54)
[2018-02-01] MEDS: PALIPERIDONE 3 MG TAB.ER.24 PO SCH (21:37)
[2018-02-01] MEDS: ACETAMINOPHEN TAB 325 MG TAB PO PRN (21:38)
[2018-02-02 05:43] VITALS: RESP 16
[2018-02-02] MEDS: levETIRAcetam 500 MG TAB PO SCH ×2 (08:53→20:43)
[2018-02-02] MEDS: NAMZARIC PO SCH (08:53)
[2018-02-02] MEDS: PANTOPRAZOLE 40 MG TABLET PO SCH (08:53)
[2018-02-02] MEDS: CARBIDOPA-LEVODOPA 10-100 MG 1 EACH TAB PO SCH ×2 (08:53→20:40)
--- NOTE | 2018-02-02 13:13 | P.PN ---
Progress Note - Text Progress Note Date: 02/02/18 Interval History: Patient is a 72-year-old male who was seen today, he walked to the interview room and using a walker without difficulty. Patient states that he is no longer seeing things and reports that he is not getting agitated or upset. Patient states that he dislikes his daughter's partner, stating that he finds him confrontational at times. Patient states that he has been sleeping well and has been eating. He reports that he has been attending groups and activities. Patient has no complaints of side effects from the medication. Mental Status: Appearance/Attitude: Patient is dressed in a hospital gown, using a walker to ambulate and wearing goggles styled glasses, he is cooperative and makes good eye contact Behavior: Patient does not exhibit any psychomotor agitation or retardation. Speech/Language: Patient's speech is spontaneous and of normal volume and rhythm and he is coherent Thought Process: Patient is goal-directed there is no evidence of loose association or flight of ideas. Thought Content: Patient denies auditory or visual hallucinations and no delusions or paranoid ideation were elicited. Patient states that he dislikes his daughter's partner, whom the patient finds to be confrontational. Patient states that the 2 of them do get into arguments. Patient states he is eating and sleeping well. He reports no side effects from the medication. Suicidal/Homicidal Ideation: Patient denies any current suicidal or homicidal ideation. Sensorium/Cognition: Patient is alert and oriented to person, place, and time and his recent and remote memory are grossly intact. Mood/Affect: Patient's mood is pleasant and his affect is appropriate Insight/Judgment: Patient's insight and judgment are fair Assessment: Patient has had any episodes of agitation or irritability on the unit and reports no further visual hallucinations. Patient has been attending groups and activities and has been ambulating using a walker without difficulty. Patient is responding to the Invega without side effects. Patient and I discussed possible discharge tomorrow, he will return home to live with his daughter and her partner. Plan: Patient will continue on Invega 3 mg at bedtime and we discussed possible discharge tomorrow. We'll also make a home health referral at discharge.
[2018-02-02] MEDS: PALIPERIDONE 3 MG TAB.ER.24 PO SCH (20:40)
[2018-02-02] MEDS: LATANOPROST 0.005% OPHTH DROPS 2.5 ML BTL BOTH EYES SCH (20:40)
[2018-02-03 06:31] VITALS: BP 97/56; PULSE 73; TEMP 98.2
[2018-02-03] MEDS: levETIRAcetam 500 MG TAB PO SCH (08:44)
[2018-02-03] MEDS: PANTOPRAZOLE 40 MG TABLET PO SCH (08:44)
[2018-02-03] MEDS: NAMZARIC PO SCH (08:44)
[2018-02-03] MEDS: CARBIDOPA-LEVODOPA 10-100 MG 1 EACH TAB PO SCH (08:44)
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
== END 2018-02-03 19:41 | DRG 885 ==
LOC: EC 11:17 → 3MHU 16:37
PROVIDERS: ADMIT Psychiatry & Neurology Psychiatry; ATTEND Psychiatry & Neurology Psychiatry
DX: F29 Unspecified psychosis not due to a substance or known physiological condition (principal); F02.81 Dementia in other diseases classified elsewhere, unspecified severity, with behavioral disturbance; G20 Parkinson's disease; G40.909 Epilepsy, unspecified, not intractable, without status epilepticus; H40.9 Unspecified glaucoma; H54.61 Unqualified visual loss, right eye, normal vision left eye; J44.9 Chronic obstructive pulmonary disease, unspecified; K21.9 Gastro-esophageal reflux disease without esophagitis; K44.9 Diaphragmatic hernia without obstruction or gangrene; Z79.899 Other long term (current) drug therapy; Z82.0 Family history of epilepsy and other diseases of the nervous system; Z82.3 Family history of stroke; Z82.49 Family history of ischemic heart disease and other diseases of the circulatory system; Z87.891 Personal history of nicotine dependence; Z91.19 Patient's noncompliance with other medical treatment and regimen; Z98.42 Cataract extraction status, left eye
CPT/HCPCS: 36415; 80053; 80061; 80177; 80306; 81001; 81003; 82075; 83036; 84443; 85025; 99285